=== PATIENT | female | born 1950 | race Caucasian/White ===

== ENCOUNTER → 2019-04-12 | Outpatient (CLI) | payer MEDICARE | END | disposition home or self-care (01) | LOC: RAH 10:22 | PROVIDERS: ATTEND Internal Medicine | DX: T14.8XXA Other injury of unspecified body region, initial encounter (principal); S22.088A Other fracture of T11-T12 vertebra, initial encounter for closed fracture; S22.32XA Fracture of one rib, left side, initial encounter for closed fracture; M47.812 Spondylosis without myelopathy or radiculopathy, cervical region; M41.56 Other secondary scoliosis, lumbar region; W19.XXXA Unspecified fall, initial encounter; Y93.9 Activity, unspecified; Y99.9 Unspecified external cause status; Y92.9 Unspecified place or not applicable | CPT/HCPCS: 71046; 71110; 72040; 72070; 72100 ==

== ENCOUNTER → 2019-04-26 | Outpatient (CLI) | payer MEDICARE | END | disposition home or self-care (01) | LOC: RAH 12:44 | PROVIDERS: ATTEND Internal Medicine | DX: S22.089S Unspecified fracture of T11-T12 vertebra, sequela (principal); M95.4 Acquired deformity of chest and rib; W17.89XA Other fall from one level to another, initial encounter; X58.XXXS Exposure to other specified factors, sequela | CPT/HCPCS: 72146 ==

== ENCOUNTER → 2020-01-18 | Outpatient (CLI) | payer MEDICARE | END | disposition home or self-care (01) | LOC: SHCH 15:11 | PROVIDERS: ATTEND Internal Medicine Cardiovascular Disease | DX: R01.1 Cardiac murmur, unspecified (principal) | CPT/HCPCS: 93306; 93356 ==

== ENCOUNTER → 2022-10-07 | Outpatient (CLI) | payer MEDICARE | END | disposition home or self-care (01) | LOC: RAH 10:06 | PROVIDERS: ATTEND Internal Medicine | DX: M16.11 Unilateral primary osteoarthritis, right hip (principal); M16.12 Unilateral primary osteoarthritis, left hip | CPT/HCPCS: 72100; 73502 ==

== ENCOUNTER → 2025-02-24 | Outpatient (CLI) | payer MEDICARE ==
--- NOTE | 2025-02-24 13:50 | HMCIMG ---
CHEST 2VWS REASON: PRE OP COMPARISON: Chest radiograph from 04/12/2019 is available FINDINGS: Two views of the chest were obtained. Lungs are clear. There is hyperaeration of lungs with flattening of both hemidiaphragms suggesting of chronic obstructive disease. Heart size is normal. There is uncoiling atherosclerotic change of thoracic aorta. There is no pulmonary vascular congestion. Mediastinum and bony thorax appear unremarkable. The bony thorax demonstrate osteopenia. There is a reverse left shoulder arthroplasty which appears to be in satisfactory position. IMPRESSION: Chronic obstructive pulmonary disease No evidence of airspace consolidation or pulmonary venous congestion..
== END | disposition home or self-care (01) ==
LOC: RAH 10:52
PROVIDERS: ATTEND Clinical Nurse Specialist Family Health
DX: Z01.818 Encounter for other preprocedural examination (principal); J44.9 Chronic obstructive pulmonary disease, unspecified; M85.88 Other specified disorders of bone density and structure, other site; M25.561 Pain in right knee; I70.0 Atherosclerosis of aorta; Z96.611 Presence of right artificial shoulder joint
CPT/HCPCS: 71046